=== PATIENT | female | born 1990 | race Asian ===

== ENCOUNTER 2025-01-29 12:06 | Emergency (ER) | payer SELFPAY ==
[~2025-01-29] VITALS: Ht 160 cm; Wt 90.0 kg
[2025-01-29 12:10] VITALS: O2SAT 99
[2025-01-29 14:00] VITALS: BP 116/59; PULSE 67; RESP 18; TEMP 37; O2SAT 99
== END 2025-01-29 14:02 | disposition home or self-care (01) ==
LOC: ER 12:06
DX: S09.8XXA Other specified injuries of head, initial encounter (principal); X58.XXXA Exposure to other specified factors, initial encounter; Y93.89 Activity, other specified; Y92.89 Other specified places as the place of occurrence of the external cause; Y99.8 Other external cause status
CPT/HCPCS: 99284